=== PATIENT | male | born 1995 | race Caucasian/White ===

== ENCOUNTER 2021-06-17 08:00 | Outpatient (CLI) | payer BC ==
--- NOTE | 2021-06-17 15:04 | XRAY Report ---
PROCEDURE: Ribs w/PA Chest LT INDICATIONS: RIB PAIN, LEFT SIDED; FLANK PAIN, LEFT TECHNIQUE: 3 views of the left ribs were acquired, along with a single view chest. COMPARISON: FINDINGS: Surgical changes and devices: None. Bones and chest wall: No fractures or dislocations. No suspicious bony lesions. Overlying soft tis sues appear unremarkable. Lungs and pleura: No pleural effusions or pneumothorax. Lungs appear clear. Mediastinum: Mediastinal contours appear normal. Heart size is normal. IMPRESSION: No acute fracture. No osseous lesion. If symptoms and/or clinical suspicion for pathology continue, f urther assessment with repeat plain films, or advanced imaging (e.g., CT or bone scan) is recommended for further assessment. Reviewed by: Birgit Newman MD on 06/17/2021 3:03 PM PDT Approved by: Birgit Newman MD on 06/17/2021 3:03 PM PDT Station ID: [id number]
== END 2021-06-17 23:59 | disposition home or self-care (01) ==
LOC: DI.S 08:00
PROVIDERS: ATTEND Physician Assistant Medical
DX: R07.81 Pleurodynia (principal); R10.9 Unspecified abdominal pain